=== PATIENT | male | born 1960 | race Two or more races ===

== ENCOUNTER → 2020-05-02 | Day surgery (SDC) | payer SELFPAY ==
--- NOTE | 2020-05-02 16:45 | RADIOLOGY REPORT (SQ) ---
EXAM DESCRIPTION: U/S BX SOFT TISS NECK THORX IMAGES COMPLETED DATE/TIME: 05/02/2020 3:10 pm REASON FOR STUDY: C07 MALIGNANT NEOPLASM OF PAROTID GLAND COMPARISON: None. TECHNIQUE: The procedure, risks, benefits, and alternatives were discussed with the patient in the p reprocedural area, and all questions were answered. Informed consent was obtained verbally and in wri ting. The patient was then brought to the ultrasound suite, positioned supine on a gurney and a time-out wa s performed. After that, selected grayscale and color Doppler images of the right side of the neck w ere obtained. There is a hypoechoic mass in the submandibular region that measures 3.9 x 4.2 x 2.6 cm ; around the mass there are several prominent lymph nodes. Based on review of the images an appropr iate access site was selected on the skin. The area around the selected access site was then prepped and draped with 2% chlorhexidine utilizing standard sterile technique. After that, the access site was infiltrated with 1% lidocaine and a skin incision was made with a #11 blade. A 19 gauge coaxial needle was then advanced through the skin inc ision and into the mass utilizing sonographic guidance. After that, the inner stylet of the coaxial n eedle was removed and 3 20 gauge core samples were obtained of the mass - the samples were collected and submitted to cytopathology in formalin. The coaxial needle was then removed and selected grayscale and color Doppler images of the mass were repeated and reviewed ; the images demonstrated no acute biopsy-related complication. After that, a s econd access site was selected to sample the largest of the lymph nodes. Then, after the access site was anesthetized with 1% lidocaine, a 25 gauge needle was advanced into the lesion of interest utiliz ing sonographic guidance ; after each pass the sample was submitted to cytopathology for review and i n total 4 passes were performed. The patient tolerated the procedure well with local anesthesia. At the end of the procedure the patient's condition was unchanged from the preprocedural baseline. Documentation of [id number] time the proceduralist spent monitoring the patient: 30 minutes. LIMITATIONS: None. FINDINGS: Integrated into the Technique. IMPRESSION: 1. Successful ultrasound-guided core needle biopsy of the hypoechoic mass in the right submandibular region. 2. Successful ultrasound-guided FNA of the largest visualized lymph node in the right submandibular r egion. TECHNICAL DOCUMENTATION: JOB ID: [id number] 2010 [employer]- All Rights Reserved Reading location - IP/workstation name: [email or web address]
== END ==
LOC: RAD 13:00
PROVIDERS: ATTEND Otolaryngology
DX: C07 Malignant neoplasm of parotid gland (principal)
CPT/HCPCS: 21550; 88173; 88305; 88313; 88341; 88342